=== PATIENT | female | born 1990 | race Caucasian/White ===

== ENCOUNTER 2024-06-08 03:38 | Emergency (ER) | payer OTHER ==
[2024-06-08 04:07] LABS: BASOPHILS % (AUTO) 0.4 %; EOSINOPHILS # (AUTO) 0.1 10^3/uL (0.0-0.7); HCT - HEMATOCRIT 38.9 % (37.0-47.0); HGB - HEMOGLOBIN 12.4 g/dL (12.0-16.0); LYMPHOCYTES # (AUTO) 1.9 10^3/uL (1.5-3.5); LYMPHOCYTES % (AUTO) 25.5 %; MEAN CORPUSCULAR HEMOGLOBIN 24.9 pg (27.0-31.0); MEAN CORPUSCULAR HGB CONC 31.9 g/dL (32.0-36.0); MEAN CORPUSCULAR VOLUME 78.1 fL (81.0-99.0); MEAN PLATELET VOLUME 9.7 fL (7.9-10.8); MONOCYTES # (AUTO) 0.5 10^3/uL (0.0-1.0); MONOCYTES % (AUTO) 6.6 %; NEUTROPHILS # (AUTO) 5.1 10^3/uL (1.5-6.6); NEUTROPHILS % (AUTO) 66.2 %; PLT - PLATELET COUNT 384 10^3/uL (130-450); RED BLOOD COUNT 4.98 10^6/uL (4.20-5.40); WHITE BLOOD COUNT 7.6 x10^3/uL (4.8-10.8)
[2024-06-08] MEDS: KETOROLAC 15 MG/ML VIAL IVP STA (04:09)
[2024-06-08] MEDS: ONDANSETRON 4 MG/2 ML VIAL IVP STA (04:09)
--- NOTE | 2024-06-08 04:23 | ED Physician Documentation ---
History of Present Illness - Stated complaint Stated Complaint: NAUSEA/ABD PX - Chief complaint Chief Complaint: Abd Pain - History obtained from History obtained from: Patient - Additonal information Additional information: 33-year-old woman with history of anxiety and vague gastrointestinal issues as yet undiagnosed presents with midepigastric pain and nausea for the past 2 days as well as severe anxiety and inability to have a normal bowel movement. Patient is visiting from [place] and has been taking magnesium citrate to have bowel movements. She took mag citrate at 2 AM as well as her home antianxiety benzodiazepine medication. denies blood in stool or vomitus. she has been retching. denies fever. no psh PD PAST MEDICAL HISTORY - Past Medical History Past Medical History: Yes Endocrine/Autoimmune: HyPOthyroidism Psych: Depression, Anxiety Other Past Medical History: Achalesia - Past Surgical History Past Surgical History: Yes - Allergies Allergies/Adverse Reactions: Allergies Allergy/AdvReac Type Severity Reaction Status Date / Time No Known Drug Allergies Allergy Verified 06/08/24 03:52 - Social History Does the pt smoke?: No Smoking Status: Never smoker Does the pt drink ETOH?: No - Immunizations Immunizations are current?: No Immunizations: TDAP >10years/unknown - POLST Patient has POLST: No PD ED PE NORMAL - Vitals Vital signs reviewed: Yes - General General: Alert and oriented X 3, No acute distress, Well developed/nourished - HEENT HEENT: Atraumatic, PERRL, EOMI - Neck Neck: Supple, no meningeal sign - Cardiac Cardiac: RRR - Respiratory Respiratory: No respiratory distress, Clear bilaterally - Abdomen Abdomen: Non tender, Non distended, Other (epigastric discomfort to palpation) - Back Back: No CVA TTP - Derm Derm: Normal color, Warm and dry - Extremities Extremities: No deformity - Neuro Neuro: No motor deficit, No sensory deficit Results - Vitals Vitals: Vital Signs - 24 hr 06/08/24 03:45 Temperature 36.7 C Heart Rate 108 H Respiratory 20 Rate Blood Pressure 123/88 H O2 Saturation 98 Oxygen O2 Source Room air - Labs Labs: Laboratory Tests 06/08/24 04:00 WBC 7.6 RBC 4.98 Hgb 12.4 Hct 38.9 MCV 78.1 L MCH 24.9 L MCHC 31.9 L RDW 14.0 Plt Count 384 MPV 9.7 Neut # (Auto) 5.1 Lymph # (Auto) 1.9 Villalba # (Auto) 0.5 Eos # (Auto) 0.1 Baso # (Auto) 0.0 Absolute Nucleated RBC 0.00 Nucleated RBC % 0.0 PD Medical Decision Making - ED course ED course: 33yF p/w nausea, anxiety and epigastric pain, improving s/p zofran, pepcid and toradol. Benign exam and workup. discussed need for outpatient f/u with her psychiatrist and GI. return precautions given. Departure - Departure Clinical Impression: Abdominal pain, Diarrhea, Vomiting, Anxiety Condition: Stable Instructions: ED Diet Vomiting Diarrhea Comments: You were seen in the emergency department for medical evaluation. No emergent cause was found for your symptoms. Please follow up with gastroenterology and psychiatry regarding your symptoms. Please follow-up with your primary care provider as well and return to the emergency department if you have any new or worsening symptoms or other concerns.
[2024-06-08 04:24] LABS: BILIRUBIN,URINE NEGATIVE (NEGATIVE); GLUCOSE, URINE (UA) NEGATIVE (NEGATIVE); HCG UR QUAL NEGATIVE; KETONES,URINE (UA) NEGATIVE (NEGATIVE); LEUKOCYTE ESTERASE, URINE NEGATIVE (NEGATIVE); NITRITE,URINE NEGATIVE (NEGATIVE); OCCULT BLOOD,URINE LARGE (NEGATIVE); PROTEIN,URINE NEGATIVE (NEGATIVE); UROBILINOGEN,URINE 0.2 (NORMAL) E.U./dL (NORMAL)
[2024-06-08 04:24] LABS: ALBUMIN/GLOBULIN RATIO 1.8 (1.0-2.2); BILIRUBIN,TOTAL 0.3 mg/dL (0.2-1.0); CALCIUM 10.3 mg/dL (8.5-10.3); CREATININE 0.9 mg/dL (0.6-1.3); POTASSIUM 3.5 mmol/L (3.5-4.5); TOTAL PROTEIN 7.8 g/dL (6.4-8.9)
[2024-06-08 04:30] LABS: BACTERIA,URINE Rare /HPF (None Seen); CLARITY,URINE CLEAR (CLEAR); MUCUS,URINE Few Strands; SQUAMOUS EPITHELIAL CELL,UR FEW Squamous (<= Few); WBC,URINE 0-3 /HPF (0-5)
[2024-06-08] MEDS: FAMOTIDINE 20 MG/2 ML VIAL IVP STA (04:30)
[2024-06-08] MEDS: SODIUM CHLORIDE 0.9% 500 ML IV STA (04:30)
[2024-06-08 05:17] VITALS: BP 129/74; O2SAT 100
== END 2024-06-08 06:02 | disposition home or self-care (01) ==
LOC: ED 03:38
DX: R10.13 Epigastric pain (principal); R19.7 Diarrhea, unspecified; R11.2 Nausea with vomiting, unspecified; F41.9 Anxiety disorder, unspecified; E03.9 Hypothyroidism, unspecified
CPT/HCPCS: 36415; 80053; 81001; 81003; 81025; 83690; 85025; 87086; 96374; 96375; 99283